=== PATIENT | female | born 1995 | race Two or more races ===

== ENCOUNTER 2024-04-11 22:17 | Emergency (ER) | payer MEDICAID, OTHER ==
[~2024-04-11] VITALS: Ht 157.5 cm; Wt 63.3 kg
[2024-04-11 22:35] VITALS: BP 152/80; TEMP 98.2; O2SAT 97
[2024-04-11] MEDS ORDERED: AMOX500T3 PO (23:17)
[2024-04-11 23:20] VITALS: PULSE 89; RESP 20
== END 2024-04-12 00:18 | disposition home or self-care (01) ==
LOC: ER 22:17
DX: J03.90 Acute tonsillitis, unspecified (principal); H66.92 Otitis media, unspecified, left ear